=== PATIENT | female | born 1960 | race Caucasian/White ===

== ENCOUNTER 2021-03-23 09:49 | Day surgery (SDC) | payer OTHER, SELFPAY ==
[~2021-03-23] VITALS: Ht 160 cm; Wt 65.8 kg
[2021-03-23] MEDS ORDERED: fentaNYL citrate 0.05 MG/ML VIAL ONE (13:22)
[2021-03-23] MEDS ORDERED: MIDAZOLAM 5 MG/5 ML VIAL ONE (13:23)
[2021-03-23] MEDS ORDERED: LIDOCAINE 2% 100 MG/5 ML UJET TP ONE ×2 (13:23→14:05)
[2021-03-23] MEDS ORDERED: fentaNYL citrate 0.05 MG/ML VIAL IVP ONE (14:05)
[2021-03-23] MEDS ORDERED: MIDAZOLAM 2 MG/2 ML VIAL IVP ONE (14:05)
== END 2021-03-23 14:32 | disposition home or self-care (01) ==
LOC: MDS 09:49 → MMU 11:46 → MDS 14:32
PROVIDERS: ATTEND Internal Medicine Gastroenterology
DX: Z12.11 Encounter for screening for malignant neoplasm of colon (principal); Z20.822 Contact with and (suspected) exposure to COVID-19
CPT/HCPCS: 45378; 87426; J2250; J3010